=== PATIENT | female | born 1975 | race Hispanic/Latino ===

== ENCOUNTER → 2020-07-01 | Outpatient (CLI) | payer BC ==
[~2020-07-01] MED LIST: IOHEXOL-350 50ML VIAL IV ONE; LEVO50TA11 PO; LEVO75TA10 PO; METF-446 PO
== END | disposition home or self-care (01) ==
LOC: RAH 12:44
PROVIDERS: ATTEND Family Medicine
DX: R51 Headache (principal)
CPT/HCPCS: 70470; Q9967

== ENCOUNTER → 2020-08-26 | Outpatient (CLI) | payer BC ==
[~2020-08-26] MED LIST changes: -IOHEXOL-350 50ML VIAL IV ONE
== END | disposition home or self-care (01) ==
LOC: SHCH 15:17
PROVIDERS: ATTEND Internal Medicine Cardiovascular Disease
DX: R00.2 Palpitations (principal); R06.00 Dyspnea, unspecified
CPT/HCPCS: 93306; 93356

== ENCOUNTER → 2024-09-03 | Outpatient (CLI) | payer BC ==
--- NOTE | 2024-09-03 15:22 | HMCIMG ---
CT CARDIAC ANGIO W/CONT. CCTA HISTORY: Dizziness COMPARISON: None TECHNIQUE: Multiple sequential axial images of the chest were obtained along with the CT angiogram of the chest study. Patient was given 100 cc of Omnipaque through intravenous route. FINDINGS: There is no evidence of pulmonary nodule or parenchymal disease. No pleural effusion or pericardial effusion is seen. There is no evidence of pneumothorax. There are normal size mediastinal and hilar lymph nodes. The heart is not enlarged. Degenerative changes of the thoracolumbar spine are present. IMPRESSION: 1. No evidence of pulmonary nodule or effusion is seen. Please see CT angiogram report of coronary arteries.
--- NOTE | 2024-09-07 12:20 | CARDIOLOGY ---
RAD REPORT: CORNARY CT ANGIO RADIOLOGY REPORT: CORONARY CT ANGIOGRAPHY DATE: Sep 07, 2024 QUALITY: Excellent CLINICAL HISTORY AND INDICATION: [ chest pain ] TECHNIQUE: After obtaining a preliminary studio associate image, contrast imaging performed on an [employer] [id number] scanner. A dedicated, limited window, coronary imaging protocol was used, with single breath-hold, retrospective ECG gating, and automated arrhythmia rejection. 100 cc of low osmolar contrast agent: Omnipaque 350 was delivered via a 18-gauge IV catheter in the right antecubital fossa, using a power injector and followed by 60 cc of normal saline bolus as a chaser. Collimated images were reformatted at 0.5 mm intervals, and sent to an offline independent workstation for interpretation, using 3D anatomic reconstructions: Curved multiplanar reconstructions, maximum intensity projections, and multiplanar imaging. No metoprolol was administered prior to scanning due to low baseline heart rate. 0.4 mg SL nitroglycerin was given. CORONARY ARTERY DESCRIPTIONS: The coronary arteries arise in normal position. Left main coronary artery: Normal caliber vessel that bifurcates into the LAD and LCx. No stenosis. Left anterior descending coronary artery: Normal caliber vessel and gives rise to diagonal and septal branches. No stenosis. Left circumflex coronary artery: Normal caliber, nondominant and gives rise to two OM branches. No stenosis. Right coronary artery: Large, dominant vessel giving rise to the PL and PDA branches. No stenosis. CAD-RADs: 0, absence of CAD. Bell Saenz MD Cardiovascular Disease [facility] BELL SAENZ MD Sep 07, 2024 12:20
--- NOTE | 2024-09-08 09:15 | HMCSR ---
APPROVED REPORT Laterality: Bilateral Doppler Spectral Velocity Analysis PSV / EDVPSV / EDV ECA (R) 64 / cm/sECA (L) 86 / cm/s dICA (R) 70 / 36 cm/sdICA (L) 79 / 32 cm/s Davie (R) 78 / 34 cm/smICA (L) 93 / 44 cm/s pICA (R) 61 / 32 cm/spICA (L) 76 / 22 cm/s dCCA (R) 87 / 25 cm/sdCCA (L) 104 / 33 cm/s mCCA (R) 92 / 28 cm/smCCA (L) 119 / 40 cm/s pCCA (R) 80 / 24 cm/spCCA (L) 102 / 32 cm/s Vert (R) 45 / cm/sVert (L) 40 / cm/s Subl. (R) 102 / cm/sSubl. (L) 118 / cm/s ICA/CCA 0.85ICA/CCA 0.78 Technologist Impression Minimal plaque noted in the bilateral carotid arteries without hemodynamic significance. The bilateral vertebral arteries reflect antegrade flow. Conclusion Minimal plaque noted in the bilateral carotid arteries without hemodynamic significance. The bilateral vertebral arteries reflect antegrade flow. Conclusion Minimal plaque noted in the bilateral carotid arteries without hemodynamic significance. The bilateral vertebral arteries reflect antegrade flow.
== END | disposition home or self-care (01) ==
LOC: RAH 12:59
PROVIDERS: ATTEND Student in an Organized Health Care Education/Training Program
DX: Z01.818 Encounter for other preprocedural examination (principal); R07.9 Chest pain, unspecified; R06.09 Other forms of dyspnea; M47.815 Spondylosis without myelopathy or radiculopathy, thoracolumbar region; R42 Dizziness and giddiness; Z82.49 Family history of ischemic heart disease and other diseases of the circulatory system
CPT/HCPCS: 75574; 93880